=== PATIENT | female | born 2000 | race Caucasian/White ===

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

== ENCOUNTER → 2021-03-03 | Outpatient (CLI) | payer OTHER | END | disposition home or self-care (01) | LOC: LAB 13:02 → LAB SHORT 13:02 → LAB EV 13:02 | DX: J02.9 Acute pharyngitis, unspecified (principal) | CPT/HCPCS: 87081 ==

== ENCOUNTER → 2022-10-27 | Outpatient (CLI) | payer OTHER | END | disposition home or self-care (01) | LOC: LAB SHORT 16:28 → LAB 16:28 | DX: N39.0 Urinary tract infection, site not specified (principal) | CPT/HCPCS: 87077; 87086; 87186 ==

== ENCOUNTER → 2023-06-01 | Outpatient (CLI) | payer OTHER ==
[2023-06-03 04:09] LABS: CHLAMYDIA TRACHOMATIS, NAA Negative (Negative)
== END | disposition home or self-care (01) ==
LOC: LAB SHORT 10:15 → LAB 10:15
PROVIDERS: Nurse Practitioner Acute Care
DX: R10.9 Unspecified abdominal pain (principal); R30.0 Dysuria
CPT/HCPCS: 87086; 87491; 87591

== ENCOUNTER → 2023-06-02 | Outpatient (CLI) | payer OTHER ==
[2023-06-02 19:39] LABS: Campylobacter Sp Not Detected (NOT DETECT)
[2023-06-02 19:40] LABS: Adenovirus F 40/41 Not Detected (NOT DETECT); Astrovirus Not Detected (NOT DETECT); Cryptosporidium Not Detected (NOT DETECT); Cyclospora Cayetanensis Not Detected (NOT DETECT); E. Coli O157 Not Detected (NOT DETECT); Entamoeba Histolytica Not Detected (NOT DETECT); Enteroaggregative E. coli-EAEC Not Detected (NOT DETECT); Enteropathogenic E. coli-EPEC Not Detected (NOT DETECT); Enterotoxigenic E. coli-ETEC Not Detected (NOT DETECT); Giardia Lamblia Not Detected (NOT DETECT); Norovirus GI/GII Not Detected (NOT DETECT); Plesiomonas Shigelloides Not Detected (NOT DETECT); Rotavirus A Not Detected (NOT DETECT); Salmonella Sp Not Detected (NOT DETECT); Sapovirus Not Detected (NOT DETECT); Shiga Toxin-prod E. coli-STEC Not Detected (NOT DETECT); Shigella/Enteroin E. coli-EIEC Not Detected (NOT DETECT); Vibrio Cholerae Not Detected (NOT DETECT); Vibrio Sp Not Detected (NOT DETECT); Yersinia Enterocolitica Not Detected (NOT DETECT)
== END | disposition home or self-care (01) ==
LOC: LAB 17:47 → LAB SHORT 17:47
PROVIDERS: Nurse Practitioner Acute Care
DX: R10.9 Unspecified abdominal pain (principal); R19.7 Diarrhea, unspecified
CPT/HCPCS: 87507

== ENCOUNTER 2023-06-18 10:51 | Observation (INO) | payer OTHER ==
[~2023-06-18] VITALS: Ht 172.7 cm; Wt 54.3 kg
[2023-06-18 12:49] LABS: BASOPHILS ABSOLUTE AUTO 0.14 K/mm3 (0.00-0.23); BASOPHILS PERCENT AUTO 1 % (0-2); EOSINOPHILS ABSOLUTE AUTO 0.67 K/mm3 (0.00-0.68); EOSINOPHILS PERCENT AUTO 3 % (0-6); Hematocrit 37.6 % (33.0-51.0); Hemoglobin 11.7 g/dL (11.5-16.0); IMMATURE GRAN ABSOLUTE AUTO 0.15 K/mm3 (0.00-0.10); IMMATURE GRAN PERCENT AUTO 1 % (0-1); LYMPHOCYTES PERCENT AUTO 7 % (21-46); MONOCYTES ABSOLUTE AUTO 0.98 K/mm3 (0.16-1.47); MONOCYTES PERCENT AUTO 5 % (4-13); Mean Corpuscular HGB 25.3 pg (26.0-34.0); Mean Corpuscular HGB Conc 31.1 g/dL (31.5-36.5); Mean Corpuscular Volume 81 fL (80-100); Mean Platelet Volume 9.6 fL (9.1-12.4); NEUTROPHILS ABSOLUTE AUTO 18.26 K/mm3 (1.96-9.15); NEUTROPHILS PERCENT AUTO 85 % (41-73); Platelet Count 596 K/mm3 (150-400); RDW Coefficient Variation 15.5 % (11.7-14.2); RDW Standard Deviation 45.7 fL (35.1-46.3); Red Blood Cell Count 4.62 M/mm3 (3.80-5.20)
[2023-06-18 13:30] LABS: Albumin, Blood 2.8 g/dL (3.4-5.0); Albumin/Globulin Ratio 0.5 (0.8-1.8); Bilirubin, Total 0.4 mg/dL (0.1-1.0); Bun/Creatinine Ratio 7.5 (12.0-20.0); Calcium, Blood 8.7 mg/dL (8.5-10.1); Creatinine, Blood 0.53 mg/dL (0.40-1.00); Globulin, Blood 6.2 g/dL (2.2-4.0); Potassium, Blood 3.5 mmol/L (3.5-5.5)
[2023-06-18 16:58] LABS: Source, Urine Clean Catch
[2023-06-18 17:16] LABS: Appearance, Urine Clear (Clear); Bilirubin, Urine Neg (Neg); Blood, Urine Neg (Neg); Color, Urine Yellow (P-Yellow); Glucose Qualitative, Urine Neg (Neg); Ketones, Urine 4+ (Neg); Leukocyte Esterase, Urine Neg (Neg); Nitrite, Urine Neg (Neg); Protein, Urine 1+ (Neg); Urobilinogen, Urine NORM (Normal)
[2023-06-18 18:35] VITALS: BP 114/75
[2023-06-18] MEDS ORDERED: ONDA4ODT MM (18:35)
[2023-06-18 19:25] VITALS: BP 110/63
[2023-06-19] VITALS (33 sets, daily range): BP systolic 87–130; BP diastolic 46–82
--- NOTE | 2023-06-19 02:12 | NUR ---
shift summery. pt having n/v with the golytiely, pt given zofran earlyer and not time for more yet. Called gerontological nurse practitioner MD for another antiemetic . Pt also had temp of 102.0 order for tylenol given, checked of pt , pt unable to drink much of golitely due to n/v. Dose of zofran now avalable and given to pt. Pt also requested pain meds for abd pain. Reminded pt and mom to keep tying to get as much golytiely down as possible so procedures can be done. Both VU and pt trying to drink bowl prep. Pt is reporting having liq stools. call light in reach.
[2023-06-19 05:55] LABS: BASOPHILS PERCENT AUTO 1 % (0-2); EOSINOPHILS ABSOLUTE AUTO 0.35 K/mm3 (0.00-0.68); EOSINOPHILS PERCENT AUTO 2 % (0-6); Hematocrit 29.4 % (33.0-51.0); IMMATURE GRAN ABSOLUTE AUTO 0.13 K/mm3 (0.00-0.10); IMMATURE GRAN PERCENT AUTO 1 % (0-1); LYMPHOCYTES ABSOLUTE AUTO 1.11 K/mm3 (0.84-5.20); LYMPHOCYTES PERCENT AUTO 7 % (21-46); MONOCYTES ABSOLUTE AUTO 1.32 K/mm3 (0.16-1.47); MONOCYTES PERCENT AUTO 8 % (4-13); Mean Corpuscular HGB 25.1 pg (26.0-34.0); Mean Corpuscular HGB Conc 30.6 g/dL (31.5-36.5); Mean Corpuscular Volume 82 fL (80-100); Mean Platelet Volume 9.2 fL (9.1-12.4); NEUTROPHILS ABSOLUTE AUTO 13.41 K/mm3 (1.96-9.15); NEUTROPHILS PERCENT AUTO 82 % (41-73); Platelet Count 515 K/mm3 (150-400); RDW Coefficient Variation 15.5 % (11.7-14.2); RDW Standard Deviation 46.5 fL (35.1-46.3); Red Blood Cell Count 3.59 M/mm3 (3.80-5.20); White Blood Cell Count 16.42 K/mm3 (4.00-11.30)
[2023-06-19 07:23] LABS: Albumin, Blood 1.9 g/dL (3.4-5.0); Albumin/Globulin Ratio 0.4 (0.8-1.8); Bilirubin, Total 0.4 mg/dL (0.1-1.0); Bun/Creatinine Ratio 5.3 (12.0-20.0); Calcium, Blood 7.6 mg/dL (8.5-10.1); Creatinine, Blood 0.56 mg/dL (0.40-1.00); Globulin, Blood 4.5 g/dL (2.2-4.0)
[2023-06-19 07:28] LABS: Total Protein, Blood 6.4 g/dL (6.4-8.2)
--- NOTE | 2023-06-19 14:45 | NUR ---
History, Chart, Medications and Allergies reviewed before start of procedure. Pre-Op teaching done. Pt verbalizes understanding. Patient confirms NPO status and agrees with scheduled surgery. Patient states colon prep results clear. Lungs clear T/O to Auscultation.
--- NOTE | 2023-06-19 14:55 | NUR ---
06/19/23 1455 Yasemin Roberts HISTORY, CHART, MEDICATIONS AND ALLERGIES REVIEWED BEFORE START OF PROCEDURE. PATIENT CONFIRMS NPO STATUS AND AGREES WITH SCHEDULED PROCEDURE. 3-LEAD EKG REVIEWED WITH PHYSICIAN PRIOR TO START OF PROCEDURE. MONITOR INTACT WITH CONTINUOUS PULSE OXIMETRY,CAPNOGRAPHY, 3-LEAD EKG, INTERMITTENT BP. SUPPLEMENTAL O2 TO BE TITRATED THROUGHOUT PROCEDURE TO MAINTAIN O2 SATURATION ABOVE 90%. PATIENT DETERMINED TO BE ASA APPROPRIATE FOR PROPOFOL SEDATION PRIOR TO START OF PROCEDURE BY DR. DC.
[2023-06-19] MEDS ORDERED: ACET325 PO (18:00)
[2023-06-19] MEDS ORDERED: Prednisone10 MG PO (18:01)
[2023-06-19] MEDS ORDERED: NICO21TP TOP (18:01)
--- NOTE | 2023-06-19 19:25 | NUR ---
PT AOX4 COOPERATIVE OF CARE. PT STARTED OUT NPO FOR SCOPE AND WAS TREATED FOR NAUSEA AND PAIN PER EMAR. PT WAS ABLE TO COMPLETE SCOPE AND DR MAYEN ORDERED LABS AND MEDS TO BE COMPLETED PRIOR TO DISCHARGE. ALL LABS WERE DRAWN EXCEPT FOR TWO OF THEM. DR MAYEN WAS NOFTIFIED AND WILL LEAVE A HARD SCRPIPT AT DESK FOR PT TO EXHIBITS CURATOR TOMORROW AND COMPLETE LABS OUTPT. PT AMBULATING INDEPENDENTLY, BUT STILL HAD NAUSEA WHEN SHE TRIED TO EAT REGULAR FOOD. DR TAMAYO ADDED AN ORAL ZOFRAN TO EMAR. PT HAD PAPER WORK REVIEWED AND EDUCATIONAL MATERIAL SENT WITH HER. PT WAS ESCORTED OUT VIA WHEEL CHAIR.
[2023-06-19 19:30] LABS: Percent Saturation 4.4 % (15.0-50.0)
[2023-06-19 19:42] LABS: Rubella Antibody, IgG 81.9 IU/mL (15-)
[2023-06-19 19:58] LABS: Adenovirus F 40/41 Not Detected (NOT DETECT); Astrovirus Not Detected (NOT DETECT); Campylobacter Sp Not Detected (NOT DETECT); Cryptosporidium Not Detected (NOT DETECT); Cyclospora Cayetanensis Not Detected (NOT DETECT); E. Coli O157 Not Detected (NOT DETECT); Entamoeba Histolytica Not Detected (NOT DETECT); Enteroaggregative E. coli-EAEC Not Detected (NOT DETECT); Enteropathogenic E. coli-EPEC Not Detected (NOT DETECT); Enterotoxigenic E. coli-ETEC Not Detected (NOT DETECT); Giardia Lamblia Not Detected (NOT DETECT); Norovirus GI/GII Not Detected (NOT DETECT); Plesiomonas Shigelloides Not Detected (NOT DETECT); Rotavirus A Not Detected (NOT DETECT); Salmonella Sp Not Detected (NOT DETECT); Sapovirus Not Detected (NOT DETECT); Shiga Toxin-prod E. coli-STEC Not Detected (NOT DETECT); Shigella/Enteroin E. coli-EIEC Not Detected (NOT DETECT); Vibrio Cholerae Not Detected (NOT DETECT); Vibrio Sp Not Detected (NOT DETECT); Yersinia Enterocolitica Not Detected (NOT DETECT)
== END 2023-06-19 18:40 | disposition home or self-care (01) ==
LOC: ER 10:51 → MEDS 10:52 → ERHOLD 10:52 → MEDS 18:30
PROVIDERS: Emergency Medicine; Internal Medicine Gastroenterology; ADMIT Internal Medicine
PROC: 0DBE8ZX Excision of Large Intestine, Via Natural or Artificial Opening Endoscopic, Diagnostic (ICD-10-PCS; principal; 2023-06-19 13:00)
PROC: 0DB98ZX Excision of Duodenum, Via Natural or Artificial Opening Endoscopic, Diagnostic (ICD-10-PCS; principal; 2023-06-19 13:00)
PROC: 0DBB8ZX Excision of Ileum, Via Natural or Artificial Opening Endoscopic, Diagnostic (ICD-10-PCS; principal; 2023-06-19 13:00)
PROC: 0DB68ZX Excision of Stomach, Via Natural or Artificial Opening Endoscopic, Diagnostic (ICD-10-PCS; principal; 2023-06-19 13:00)
DX: K51.00 Ulcerative (chronic) pancolitis without complications (principal); K29.50 Unspecified chronic gastritis without bleeding; K64.4 Residual hemorrhoidal skin tags; R63.4 Abnormal weight loss; E86.0 Dehydration; Z83.719 Family history of colon polyps, unspecified; Z80.0 Family history of malignant neoplasm of digestive organs; Z72.0 Tobacco use
CPT/HCPCS: 36415; 74177; 80053; 81025; 82306; 82607; 82728; 82746; 83540; 83550; 83690; 83993; 84132; 84703; 85025; 86762; 87040; 87507; 88305; 88342; 96360; 96361; 96374; 96375; 96376; 99285-25; A9270; G0008; G0378; J2250; J2405; J2704; J2765; J3010; J3480; J7030; J7050; J7120; J7512; Q2036; Q9967

== ENCOUNTER 2023-09-19 09:53 | Inpatient (IN) | payer OTHER ==
[~2023-09-19] VITALS: Ht 172.7 cm; Wt 58.7 kg
[~2023-09-19 09:53] MED LIST: ACET325 PO; NICO21TP TOP; ONDA4ODT MM; Prednisone10 MG PO
[2023-09-19 11:04] LABS: BASOPHILS ABSOLUTE AUTO 0.06 K/mm3 (0.00-0.23); BASOPHILS PERCENT AUTO 0 % (0-2); EOSINOPHILS ABSOLUTE AUTO 0.04 K/mm3 (0.00-0.68); EOSINOPHILS PERCENT AUTO 0 % (0-6); Hematocrit 41.4 % (33.0-51.0); Hemoglobin 13.3 g/dL (11.5-16.0); IMMATURE GRAN ABSOLUTE AUTO 0.12 K/mm3 (0.00-0.10); IMMATURE GRAN PERCENT AUTO 1 % (0-1); LYMPHOCYTES ABSOLUTE AUTO 1.74 K/mm3 (0.84-5.20); LYMPHOCYTES PERCENT AUTO 11 % (21-46); MONOCYTES ABSOLUTE AUTO 1.19 K/mm3 (0.16-1.47); MONOCYTES PERCENT AUTO 8 % (4-13); Mean Corpuscular HGB Conc 32.1 g/dL (31.5-36.5); Mean Corpuscular Volume 93 fL (80-100); Mean Platelet Volume 8.6 fL (9.1-12.4); NEUTROPHILS ABSOLUTE AUTO 12.57 K/mm3 (1.96-9.15); NEUTROPHILS PERCENT AUTO 80 % (41-73); Platelet Count 382 K/mm3 (150-400); Red Blood Cell Count 4.44 M/mm3 (3.80-5.20); White Blood Cell Count 15.72 K/mm3 (4.00-11.30)
[2023-09-19 11:36] LABS: Albumin, Blood 3.6 g/dL (3.4-5.0); Albumin/Globulin Ratio 0.7 (0.8-1.8); Bilirubin, Total 0.4 mg/dL (0.1-1.0); Bun/Creatinine Ratio 8.1 (12.0-20.0); Calcium, Blood 9.3 mg/dL (8.5-10.1); Creatinine, Blood 0.62 mg/dL (0.40-1.00); Globulin, Blood 4.9 g/dL (2.2-4.0); Potassium, Blood 3.8 mmol/L (3.5-5.5); Total Protein, Blood 8.5 g/dL (6.4-8.2)
[2023-09-19] MEDS ORDERED: NS 1,000 ML IV SCH ×2 (12:10→13:20)
[2023-09-19] MEDS ORDERED: Ondansetron HCl 2 MG / ML 2ML Vial IV PRN (13:20)
[2023-09-19] MEDS ORDERED: Acetaminophen 325 MG TABLET PO PRN (13:20)
[2023-09-19] MEDS ORDERED: Ketorolac Tromethamine 15mg Vial IV PRN (13:30)
[2023-09-19] MEDS ORDERED: MethylPREDNISolone Sod Succ 40 MG VIAL IV SCH (14:00)
[2023-09-19] MEDS ORDERED: VITAMIN D5000 UNIT PO (14:04)
[2023-09-19 14:10] VITALS: BP 103/72
--- NOTE | 2023-09-19 14:50 | NUR ---
ADMIT PT ADMITTED FROM THE ER. ORIENTED TO ROOM. CALL LIGHT IN REACH. PROVIDED WITH WATER & JELLO. MOTHER AT BEDSIDE. K PAD SET UP FOR ABD PAIN RELIEF. NS STARTED ORDERED. DENIES OTHER NEEDS AT THIS TIME.
[2023-09-19 17:44] VITALS: BP 117/69
--- NOTE | 2023-09-19 18:13 | NUR ---
SHIFT SUMMARY PT ADMITTED TODAY. MEDICATED FOR PAIN ONCE THIS AFTERNOON WITH TORADOL. DENIES NAUSEA. PT STATES TWO SMALL MUCOUSY BMS WHEN SHE USED THE BATHROOM EARLIER. DR. DC CONSULTED. PT TOLERATING CLEAR LIQUIDS AT THIS TIME. NS RUNNING 150 ML/HR. PT DENIES OTHER NEEDS AT THIS TIME. VS REVIEWED. CALL LIGHT IN REACH.
[2023-09-19 20:11] VITALS: BP 95/73
[2023-09-20] VITALS (7 sets, daily range): BP systolic 99–117; BP diastolic 60–78
[2023-09-20 05:57] LABS: BASOPHILS ABSOLUTE AUTO 0.03 K/mm3 (0.00-0.23); BASOPHILS PERCENT AUTO 0 % (0-2); EOSINOPHILS PERCENT AUTO 0 % (0-6); Hematocrit 34.5 % (33.0-51.0); Hemoglobin 11.1 g/dL (11.5-16.0); IMMATURE GRAN ABSOLUTE AUTO 0.13 K/mm3 (0.00-0.10); IMMATURE GRAN PERCENT AUTO 1 % (0-1); LYMPHOCYTES ABSOLUTE AUTO 0.89 K/mm3 (0.84-5.20); LYMPHOCYTES PERCENT AUTO 5 % (21-46); MONOCYTES ABSOLUTE AUTO 0.45 K/mm3 (0.16-1.47); MONOCYTES PERCENT AUTO 3 % (4-13); Mean Corpuscular HGB 30.5 pg (26.0-34.0); Mean Corpuscular HGB Conc 32.2 g/dL (31.5-36.5); Mean Corpuscular Volume 95 fL (80-100); Mean Platelet Volume 9.1 fL (9.1-12.4); NEUTROPHILS ABSOLUTE AUTO 16.42 K/mm3 (1.96-9.15); NEUTROPHILS PERCENT AUTO 92 % (41-73); Platelet Count 338 K/mm3 (150-400); RDW Coefficient Variation 16.8 % (11.7-14.2); Red Blood Cell Count 3.64 M/mm3 (3.80-5.20); White Blood Cell Count 17.92 K/mm3 (4.00-11.30)
[2023-09-20 06:30] LABS: Alanine Aminotransfer (ALT/SGP 11 U/L (12-78); Albumin, Blood 2.9 g/dL (3.4-5.0); Albumin/Globulin Ratio 0.7 (0.8-1.8); Alk Phos 79 U/L (50-136); Anion Gap Unable to Calculate mmol/L (6-16); Aspartate Aminotrans (AST/SGOT 7 U/L (12-37); Bilirubin, Total 0.3 mg/dL (0.1-1.0); Blood Urea Nitrogen 2 mg/dL (8-24); Bun/Creatinine Ratio 4.3 (12.0-20.0); CO2, Blood 29 mmol/L (21-32); Calcium, Blood 8.5 mg/dL (8.5-10.1); Chloride, Blood 112 mmol/L (98-108); Creatinine, Blood 0.47 mg/dL (0.40-1.00); Globulin, Blood 3.9 g/dL (2.2-4.0); Glomerular Filtration Rate 136 (60-); Glucose, Blood 117 mg/dL (70-99); Sodium, Blood 140 mmol/L (136-145); Total Protein, Blood 6.8 g/dL (6.4-8.2)
--- NOTE | 2023-09-20 08:21 | NUR ---
SHIFT SUMMARY PT IS A&OX4, PLEASANT AND APPRECIATIVE OF CARES. VSS ON RA, BP A LITTLE SOFT, SYS IN THE 90'S. C/O PAIN IN ABD, MEDICATED PER EMAR, ALSO USING K PAD. PT IS INDEPENDENT IN ROOM. VOIDING IN BR, MULTIPLE LOOSE BM'S THIS SHIFT. TOLERATING A CLEAR LIQUID DIET, NO N/V. PT IS LOOKING FORWARD TO EATING FOOD. BED IN LOWEST POSITION, CALL LIGHT WITHIN REACH. CALLS APPROPRIATELY.
[2023-09-20] MEDS ORDERED: Nicotine 21 MG PATCH TOP SCH (09:00)
[2023-09-20] MEDS ORDERED: InFLIXimab-DYYB 100 MG Vial IV ONE (09:00)
[2023-09-20] MEDS ORDERED: Ergocalciferol 50000 Intn'l Units PO SCH (10:20)
[2023-09-20] MEDS ORDERED: diphenhydrAMINE HCl 12.5 MG/5 ML 5MLUDC (Alcohol/Dye Free) PO ONE (11:35)
[2023-09-20] MEDS ORDERED: Famotidine 20 MG Tab PO ONE (11:35)
[2023-09-20] MEDS ORDERED: diphenhydrAMINE HCL 25 MG/10 ML UDC PO ONE (11:40)
[2023-09-20] MEDS ORDERED: DiphenhydrAMINE HCL 25 MG Cap PO ONE (11:50)
[2023-09-20] MEDS ORDERED: Infliximab-DYYB 600 MG in NS 250 ML IV ONE (12:00)
--- NOTE | 2023-09-20 18:25 | NUR ---
SHIFT SUMMARY PT TOLERATED INFLIXIMAB WELL TODAY WITH NO REACTIONS. NO MAJOR CHANGES IN VS DURING INFUSION. PT PREMEDICATED WITH BENADRYL, PEPCID, AND TYLENOL TO HELP WITH TOLERANCE OF MED. TORADOL GIVEN TWICE THIS SHIFT TO HELP WITH ABD PAIN. PAIN PRIMARILY OCCURS WHEN HAVING/AFTER A BM. NO OTHER ACUTE CHANGES IN ASSESSMENT AT THIS TIME. VS REVIEWED. DENIES OTHER NEEDS AT THIS TIME. CALL LIGHT IN REACH.
[2023-09-20] MEDS ORDERED: MethylPREDNISolone Sod Succ 40 MG VIAL IV SCH (21:00)
[2023-09-21 04:12] VITALS: BP 98/68
[2023-09-21 05:39] LABS: BASOPHILS ABSOLUTE AUTO 0.02 K/mm3 (0.00-0.23); BASOPHILS PERCENT AUTO 0 % (0-2); EOSINOPHILS PERCENT AUTO 0 % (0-6); Hematocrit 35.6 % (33.0-51.0); Hemoglobin 11.2 g/dL (11.5-16.0); IMMATURE GRAN ABSOLUTE AUTO 0.08 K/mm3 (0.00-0.10); IMMATURE GRAN PERCENT AUTO 1 % (0-1); LYMPHOCYTES ABSOLUTE AUTO 0.85 K/mm3 (0.84-5.20); LYMPHOCYTES PERCENT AUTO 6 % (21-46); MONOCYTES ABSOLUTE AUTO 0.54 K/mm3 (0.16-1.47); MONOCYTES PERCENT AUTO 4 % (4-13); Mean Corpuscular HGB 29.8 pg (26.0-34.0); Mean Corpuscular HGB Conc 31.5 g/dL (31.5-36.5); Mean Corpuscular Volume 95 fL (80-100); Mean Platelet Volume 9.1 fL (9.1-12.4); NEUTROPHILS ABSOLUTE AUTO 11.85 K/mm3 (1.96-9.15); NEUTROPHILS PERCENT AUTO 89 % (41-73); Platelet Count 316 K/mm3 (150-400); RDW Coefficient Variation 17.1 % (11.7-14.2); RDW Standard Deviation 59.7 fL (35.1-46.3); Red Blood Cell Count 3.76 M/mm3 (3.80-5.20); White Blood Cell Count 13.34 K/mm3 (4.00-11.30)
[2023-09-21 06:12] LABS: Albumin/Globulin Ratio 0.8 (0.8-1.8); Bilirubin, Total 0.2 mg/dL (0.1-1.0); Bun/Creatinine Ratio 8.2 (12.0-20.0); Calcium, Blood 8.7 mg/dL (8.5-10.1); Creatinine, Blood 0.61 mg/dL (0.40-1.00); Potassium, Blood 4.1 mmol/L (3.5-5.5)
[2023-09-21 07:50] VITALS: BP 111/79
--- NOTE | 2023-09-21 08:53 | NUR ---
SHIFT SUMMARY PT IS A&OX4, VSS ON RA. NO EVENTS OR ACUTE CHANGES THIS SHIFT. C/O PAIN IN ABD, MEDICATED PER EMAR. INDEPENDENT IN ROOM. STILL HAVING LOOSE, MUCOUSY, AND BLOODY BM. NO C/O N/V. BED IN LOWEST POSITION, CALL LIGHT WITHIN REACH.
[2023-09-21 15:26] VITALS: BP 114/66
--- NOTE | 2023-09-21 18:34 | NUR ---
SUMMARY- PT INDEPENDANT IN THE ROOM. TOLERATING CLEAR LIQ'S. MIN SOLID FOOD INTAKE. TOOK IN PUDDING AND YOGURT, A FEW BITES OF RICE, GREEN BEENS AND A CHICKEN FOR DINNER. PT'S BOWEL THIS AM STATED PINK AND MUCOUSY. PROGRESSIVELY TURNED INTO BROWN LIQUID TO BROWN A BIT MORE FORMED WITH NO SIGHS OF BLOOD THIS PM. PAIN THIS AM SEVERE RIGHT BEFORE BOWEL READY TO MOVE. MEDICATED THIS AM WITH TORODOL. LIKELY HELPFUL TO RELEIVE DISCOMFORT. DR JADE IN TO SEE PT APPROX 1530 THIS AFERNOON. MOM IN ROOM, SUPPORTIVE IN CARE ALL OF THE DAY. WILL REPORT TO NOC VALERIE
[2023-09-21 20:06] VITALS: BP 108/71
[2023-09-22 04:01] VITALS: BP 102/69
--- NOTE | 2023-09-22 04:33 | NUR ---
SHIFT SUMMARY DENNIS WAS ALERT AND FULLY ORIENTED ON ASSESSMENT. PT REPORTS THAT STOOLS HAVE BEEN RANGING FROM LIQUID/MUCUS/BLOOD, TO SEMI FORMED BROWN STOOLS, BUT THAT IT DOES NOT SEEM TO BE A LINEAR PROGRESSION OF IMPROVEMENT. PT STATES THAT HER MOST RECENT BM WAS BLOODY AGAIN. I ASKED HER TO STOP FLUSHING HER BM'S AND LET US KNOW SO WE CAN VISUALIZE STOOLS. NO NEW OR WORSENING COMPLAINTS. PT SLEEPING IN BED AT A LOW POSITION WITH CALL LIGHT IN REACH.
[2023-09-22 05:01] LABS: Hematocrit 35.3 % (33.0-51.0); Hemoglobin 11.2 g/dL (11.5-16.0); Mean Corpuscular HGB Conc 31.7 g/dL (31.5-36.5); Mean Corpuscular Volume 95 fL (80-100); Mean Platelet Volume 9.1 fL (9.1-12.4); Platelet Count 325 K/mm3 (150-400); RDW Coefficient Variation 16.8 % (11.7-14.2); RDW Standard Deviation 59.2 fL (35.1-46.3); Red Blood Cell Count 3.73 M/mm3 (3.80-5.20); White Blood Cell Count 13.82 K/mm3 (4.00-11.30)
[2023-09-22 07:03] VITALS: BP 124/81
[2023-09-22] MEDS ORDERED: ERGO50000 PO (10:13)
--- NOTE | 2023-09-22 11:14 | NUR ---
PT DISCHARGED @1100 INDEPEDENTLY. MEDICATIONS FAXED TO [facility]. PT HAD FORMED BROWN BM THIS AM WITHOUT PRESENCE OF BLOOD. NO C/O PAIN THIS AM. IV STERIOD PROVIDED W/O COMPLAINTS. IV IN RAC REMOVED W/O COMPLICATIONS. ALL BELONGINGS SENT WITH PT. NO QUESTIONS AT TIME OF DISCHARGE. PT AWARE TO MAKE FOLLOW-UP APPOINTMENTS WITH PCP AND DR. DC.
== END 2023-09-22 10:53 | disposition home or self-care (01) | DRG 387 ==
LOC: ER 09:53 → MEDS 09:54 → ENPENDDIS 09-22 10:19 → MEDS 09-22 10:53
PROVIDERS: Family Medicine; Physician Assistant; ADMIT Internal Medicine
DX: K50.80 Crohn's disease of both small and large intestine without complications (principal); D50.9 Iron deficiency anemia, unspecified; E55.9 Vitamin D deficiency, unspecified; D72.829 Elevated white blood cell count, unspecified; F17.210 Nicotine dependence, cigarettes, uncomplicated; Z79.899 Other long term (current) drug therapy; Z90.49 Acquired absence of other specified parts of digestive tract; Z79.52 Long term (current) use of systemic steroids
CPT/HCPCS: 36415; 80053; 82306; 83690; 85025; 85027; 96361; 96374; 99284-25; A9270; J1885; J2920; J7030; J7050; Q5103

== ENCOUNTER 2024-02-07 09:40 | Emergency (ER) | payer OTHER ==
[~2024-02-07] VITALS: Ht 172.7 cm; Wt 59.0 kg
[~2024-02-07 09:40] MED LIST changes: +ERGO50000 PO; +INFLECTRA100 MG; +POTCHL20ER PO; +PRED20 PO; +VITAMIN D5000 UNIT PO
[2024-02-07 10:49] LABS: BASOPHILS ABSOLUTE AUTO 0.08 K/mm3 (0.00-0.23); BASOPHILS PERCENT AUTO 0 % (0-2); EOSINOPHILS ABSOLUTE AUTO 0.01 K/mm3 (0.00-0.68); EOSINOPHILS PERCENT AUTO 0 % (0-6); Hematocrit 41.9 % (33.0-51.0); Hemoglobin 13.9 g/dL (11.5-16.0); IMMATURE GRAN ABSOLUTE AUTO 0.13 K/mm3 (0.00-0.10); IMMATURE GRAN PERCENT AUTO 1 % (0-1); LYMPHOCYTES ABSOLUTE AUTO 1.31 K/mm3 (0.84-5.20); LYMPHOCYTES PERCENT AUTO 7 % (21-46); MONOCYTES PERCENT AUTO 5 % (4-13); Mean Corpuscular HGB 32.9 pg (26.0-34.0); Mean Corpuscular HGB Conc 33.2 g/dL (31.5-36.5); Mean Corpuscular Volume 99 fL (80-100); Mean Platelet Volume 9.2 fL (9.1-12.4); NEUTROPHILS ABSOLUTE AUTO 16.71 K/mm3 (1.96-9.15); NEUTROPHILS PERCENT AUTO 87 % (41-73); Platelet Count 426 K/mm3 (150-400); RDW Coefficient Variation 13.2 % (11.7-14.2); Red Blood Cell Count 4.23 M/mm3 (3.80-5.20); White Blood Cell Count 19.24 K/mm3 (4.00-11.30)
[2024-02-07 11:04] LABS: Albumin, Blood 3.3 g/dL (3.4-5.0); Albumin/Globulin Ratio 0.7 (0.8-1.8); Bilirubin, Total 0.6 mg/dL (0.1-1.0); Bun/Creatinine Ratio 10.7 (12.0-20.0); Calcium, Blood 9.2 mg/dL (8.5-10.1); Creatinine, Blood 0.66 mg/dL (0.40-1.00); Globulin, Blood 4.8 g/dL (2.2-4.0); Potassium, Blood 3.2 mmol/L (3.5-5.5); Total Protein, Blood 8.1 g/dL (6.4-8.2)
[2024-02-07] MEDS ORDERED: NS IV ONE (13:15)
[2024-02-07] MEDS ORDERED: INFLIXIMAB IV ONE (13:15)
[2024-02-07] MEDS ORDERED: PRED20 PO (13:36)
[2024-02-07 13:37] VITALS: BP 116/87
[2024-02-07] MEDS ORDERED: Infliximab-DYYB 300 MG in NS 250 ML IV ONE (14:20)
[2024-02-07] MEDS ORDERED: HYDR1TAB94 PO (14:23)
== END 2024-02-07 14:41 | disposition home or self-care (01) ==
LOC: ER 09:40
PROVIDERS: Physician Assistant
DX: K50.90 Crohn's disease, unspecified, without complications (principal); F17.290 Nicotine dependence, other tobacco product, uncomplicated; Z79.899 Other long term (current) drug therapy
CPT/HCPCS: 80053; 84703; 85025; 99284; J1745; J7050; Q5103

== ENCOUNTER → 2024-02-08 | Outpatient (CLI) | payer OTHER ==
[~2024-02-08] MED LIST changes: +HYDR1TAB94 PO
[2024-02-08 15:25] LABS: Adenovirus F 40/41 Not Detected (NOT DETECT); Astrovirus Not Detected (NOT DETECT); Campylobacter Sp Not Detected (NOT DETECT); Cryptosporidium Not Detected (NOT DETECT); Cyclospora Cayetanensis Not Detected (NOT DETECT); E. Coli O157 Not Detected (NOT DETECT); Entamoeba Histolytica Not Detected (NOT DETECT); Enteroaggregative E. coli-EAEC Not Detected (NOT DETECT); Enteropathogenic E. coli-EPEC Not Detected (NOT DETECT); Enterotoxigenic E. coli-ETEC Not Detected (NOT DETECT); Giardia Lamblia Not Detected (NOT DETECT); Norovirus GI/GII Not Detected (NOT DETECT); Plesiomonas Shigelloides Not Detected (NOT DETECT); Rotavirus A Not Detected (NOT DETECT); Salmonella Sp Not Detected (NOT DETECT); Sapovirus Not Detected (NOT DETECT); Shiga Toxin-prod E. coli-STEC Not Detected (NOT DETECT); Shigella/Enteroin E. coli-EIEC Not Detected (NOT DETECT); Vibrio Cholerae Not Detected (NOT DETECT); Vibrio Sp Not Detected (NOT DETECT); Yersinia Enterocolitica Not Detected (NOT DETECT)
[2024-02-12 13:47] LABS: CALPROTECTIN,FECAL >3000 ug/g (<=49)
== END | disposition home or self-care (01) ==
LOC: LAB 09:08 → LAB SHORT 09:08
PROVIDERS: Internal Medicine Gastroenterology
DX: K50.10 Crohn's disease of large intestine without complications (principal)
CPT/HCPCS: 83993; 87507

== ENCOUNTER → 2024-02-09 | Outpatient (CLI) | payer OTHER ==
[2024-02-09 12:19] LABS: Source, Urine Voided
[2024-02-09 13:03] LABS: Appearance, Urine Turbid (Clear); Blood, Urine 1+ (Neg); Color, Urine Yellow (P-Yellow); Glucose Qualitative, Urine Neg (Neg); Ketones, Urine 1+ (Neg); Leukocyte Esterase, Urine 1+ (Neg); Nitrite, Urine Neg (Neg); Protein, Urine 2+ (Neg); Urobilinogen, Urine 1+ (Normal)
[2024-02-09 13:10] LABS: Bilirubin, Urine 1+ (Neg)
[2024-02-09 13:12] LABS: Amorphous Heavy (0-Heavy); Bacteria Few /hpf; Calcium Oxalate Crystals Few /hpf; Mucus Light (0-Heavy); Squamous Epithelial Cells Few /hpf (Few)
== END ==
LOC: LAB 12:16 → LAB SHORT 12:16
PROVIDERS: Internal Medicine Gastroenterology
DX: K50.10 Crohn's disease of large intestine without complications (principal)
CPT/HCPCS: 81001

== ENCOUNTER 2024-05-12 21:25 | Emergency (ER) | payer OTHER ==
[~2024-05-12] VITALS: Ht 172.7 cm; Wt 61.2 kg
[2024-05-12 21:37] VITALS: BP 135/98
[2024-05-12] MEDS ORDERED: Acetaminophen 500 MG Tab PO ONE (22:20)
[2024-05-12] MEDS ORDERED: Ibuprofen 600 MG Tab PO ONE (22:20)
== END 2024-05-12 23:00 | disposition left against medical advice (07) ==
LOC: ER 21:25
DX: S01.85XA Open bite of other part of head, initial encounter (principal); W54.0XXA Bitten by dog, initial encounter; Z53.21 Procedure and treatment not carried out due to patient leaving prior to being seen by health care provider
CPT/HCPCS: A9270

== ENCOUNTER → 2024-11-27 | Outpatient (CLI) | payer OTHER ==
[2024-11-29 21:09] LABS: C. TRACHOMATIS BY TMA,THINPREP Negative (Negative); N. GONORRHOEAE BY TMA,THINPREP Negative (Negative); SPECIMEN SOURCE Cervical/Vag
== END | disposition home or self-care (01) ==
LOC: LAB 11:55 → LAB SHORT 11:55
PROVIDERS: Family Medicine
DX: Z01.419 Encounter for gynecological examination (general) (routine) without abnormal findings (principal); Z11.3 Encounter for screening for infections with a predominantly sexual mode of transmission
CPT/HCPCS: 87491; 87591

== ENCOUNTER → 2025-01-22 | Outpatient (CLI) | payer OTHER | LOC: LAB SHORT 14:27 → LAB 14:27 | DX: D06.9 Carcinoma in situ of cervix, unspecified (principal) | CPT/HCPCS: 88305 ==

== ENCOUNTER 2025-02-18 00:40 | Day surgery (SDC) | payer OTHER ==
[~2025-02-18] VITALS: Wt 80.3 kg
[2025-02-18 08:11] VITALS: BP 117/74
[2025-02-18] MEDS ORDERED: INFLIXIMAB DYYB IV SCH (08:25)
[2025-02-18] MEDS ORDERED: NS IV SCH (08:25)
== END 2025-02-18 10:47 | disposition home or self-care (01) ==
LOC: ATC 00:40
DX: K50.80 Crohn's disease of both small and large intestine without complications (principal)
CPT/HCPCS: 96413; 96415; J7050; Q5103

== ENCOUNTER → 2025-04-30 | Outpatient (CLI) | payer OTHER | LOC: LAB 12:01 → LAB SHORT 12:01 | DX: Z34.93 Encounter for supervision of normal pregnancy, unspecified, third trimester (principal) | CPT/HCPCS: 87081; 87150 ==

== ENCOUNTER 2025-05-27 07:55 | Inpatient (IN) | payer OTHER ==
[~2025-05-27] VITALS: Ht 172.7 cm; Wt 86.4 kg
[2025-05-27] VITALS (37 sets, daily range): BP systolic 90–152; BP diastolic 50–94
[2025-05-27] MEDS ORDERED: PRENATAL TABLE1 EAC2 PO (08:55)
[2025-05-27] MEDS ORDERED: Tranexamic Acid 100 ML IV SCH (09:05)
[2025-05-27] MEDS ORDERED: Ondansetron HCl 2 MG / ML 2ML Vial IV PRN (09:05)
[2025-05-27] MEDS ORDERED: Oxytocin 10 Unit / ML Vial IM PRN (09:05)
[2025-05-27] MEDS ORDERED: FentaNYL Citrate 50 MCG/ML 2 ML Injection IV PRN (09:05)
[2025-05-27] MEDS ORDERED: Penicillin G Potassium 5,000,000 UNITS in NS 250 ML IV ONE (09:05)
[2025-05-27] MEDS ORDERED: ePHEDrine Sulfate 50 MG/ML 1ML Injection XX PRN (09:05)
[2025-05-27] MEDS ORDERED: Carboprost Tromethamine 250 MCG/ML 1ML Amp IM PRN (09:05)
[2025-05-27] MEDS ORDERED: Methylergonovine Maleate 0.2MG / ML 1ML Amp IM PRN (09:05)
[2025-05-27] MEDS ORDERED: OXYTOCIN/RINGER'S LACTATE 500 ML IV PRN (09:05)
[2025-05-27] MEDS ORDERED: FentaNYL 2mcg/ml-Bup 0.1% Epd 250 ML EPI PRN (09:05)
[2025-05-27 09:15] LABS: BASOPHILS ABSOLUTE AUTO 0.04 K/mm3 (0.00-0.23); BASOPHILS PERCENT AUTO 0 % (0-2); EOSINOPHILS ABSOLUTE AUTO 0.01 K/mm3 (0.00-0.68); EOSINOPHILS PERCENT AUTO 0 % (0-6); Hematocrit 33.4 % (33.0-51.0); Hemoglobin 10.9 g/dL (11.5-16.0); IMMATURE GRAN ABSOLUTE AUTO 0.14 K/mm3 (0.00-0.10); IMMATURE GRAN PERCENT AUTO 1 % (0-1); LYMPHOCYTES ABSOLUTE AUTO 1.24 K/mm3 (0.84-5.20); LYMPHOCYTES PERCENT AUTO 8 % (21-46); MONOCYTES ABSOLUTE AUTO 0.67 K/mm3 (0.16-1.47); MONOCYTES PERCENT AUTO 4 % (4-13); Mean Corpuscular HGB Conc 32.6 g/dL (31.5-36.5); Mean Corpuscular Volume 87 fL (80-100); NEUTROPHILS ABSOLUTE AUTO 14.07 K/mm3 (1.96-9.15); NEUTROPHILS PERCENT AUTO 87 % (41-73); NRBC ABSOLUTE 0.00 K/mm3 (0.00-0.02); NRBC Auto 0.0 /100 WBC (0.0-0.2); Platelet Count 290 K/mm3 (150-400); RDW Coefficient Variation 14.1 % (11.7-14.2); RDW Standard Deviation 44.9 fL (35.1-46.3)
[2025-05-27] MEDS ORDERED: FentaNYL Citrate 50 MCG/ML 2 ML Injection ONE (11:36)
[2025-05-27] MEDS ORDERED: Penicillin G Potassium 2,500,000 UNITS in Dextrose 5% 100 ML IV SCH (13:30)
[2025-05-27] MEDS ORDERED: Ketorolac Tromethamine 30mg Vial IV PRN (22:40)
[2025-05-27] MEDS ORDERED: FLU VACC TS2025-26(6MOS UP)/PF 45 MCG/0.5 ML SYRINGE IM SCH (22:40)
[2025-05-27] MEDS ORDERED: Benzocaine Topical Anesthetic Spray 60GM TOP PRN (22:40)
[2025-05-27] MEDS ORDERED: Witch Hazel/Glycerin PADS TOP PRN (22:45)
[2025-05-28] VITALS (10 sets, daily range): BP systolic 110–127; BP diastolic 57–73
--- NOTE | 2025-05-28 01:54 | NUR ---
PATIENT AMBULATED WITHOUT DIFFICULTY TO THE SHOWER. VOIDED IN SHOWER. STATES PAIN IS 0/10.
[2025-05-28 05:24] LABS: Hematocrit 29.6 % (33.0-51.0); Hemoglobin 9.5 g/dL (11.5-16.0); Mean Corpuscular HGB Conc 32.1 g/dL (31.5-36.5); Mean Corpuscular Volume 89 fL (80-100); NRBC ABSOLUTE 0.00 K/mm3 (0.00-0.02); NRBC Auto 0.0 /100 WBC (0.0-0.2); Platelet Count 262 K/mm3 (150-400); RDW Coefficient Variation 14.1 % (11.7-14.2); RDW Standard Deviation 45.4 fL (35.1-46.3)
[2025-05-28] MEDS ORDERED: Prenatal Vit/FE Fumarate/FA 1 Tab PO SCH (09:00)
--- NOTE | 2025-05-28 14:07 | NUR ---
Assumed care at change of shift, patient resting in bed, c/o moderate cramping pain in abdomen, medicated as documented in EMAR. Reports no other discomfort at this time, reports going well and not requiring assistance. Patient desires to go home after newborns 24hr testing is complete. Provider is aware and a discharge order is in place at this time.
--- NOTE | 2025-05-29 00:53 | NUR ---
RN WENT OVER DISCHARGE INSTRUCTIONS, GAVE APPPIOINMENT CARD, AND MATCHED BABY BANDS. RN WATCHED MOB PLACED IN CARSEAT AND WALKED PT OUT TO VEHICLE AND WATCHED WAS PLACED IN CAR. PT HAD NO QUESTIONS OR CONCERNS BEFORE LEAVING.
== END 2025-05-28 23:58 | disposition home or self-care (01) | DRG 806 ==
LOC: BC 07:55 → OBS 07:55 → BC 08:26
PROVIDERS: Family Medicine; ADMIT Obstetrics & Gynecology
PROC: 10E0XZZ Delivery of Products of Conception, External Approach (ICD-10-PCS; principal; 2025-05-27)
PROC: 4A1HXCZ Monitoring of Products of Conception, Cardiac Rate, External Approach (ICD-10-PCS; 2025-05-27)
PROC: 10907ZC Drainage of Amniotic Fluid, Therapeutic from Products of Conception, Via Natural or Artificial Opening (ICD-10-PCS; 2025-05-27)
DX: O48.0 Post-term pregnancy (principal); K50.80 Crohn's disease of both small and large intestine without complications; Z37.0 Single live birth; Z3A.40 40 weeks gestation of pregnancy; O99.62 Diseases of the digestive system complicating childbirth; D06.9 Carcinoma in situ of cervix, unspecified; O99.892 Other specified diseases and conditions complicating childbirth; O99.824 Streptococcus B carrier state complicating childbirth; O77.0 Labor and delivery complicated by meconium in amniotic fluid; O70.0 First degree perineal laceration during delivery
CPT/HCPCS: 36415; 51701; 85025; 85027; 94762; A9270; J1885; J2405; J2540; J3010; J7050; J7120

== ENCOUNTER → 2025-07-04 | Outpatient (CLI) | payer OTHER ==
[~2025-07-04] MED LIST changes: +PRENATAL TABLE1 EAC2 PO
[2025-07-04 20:04] LABS: Bacterial Vaginosis PCR Negative (NEGATIVE); Candida Group, PCR NOT DETECTED (NOT DETECT); Candida glabrata-krusei, PCR NOT DETECTED (NOT DETECT)
== END ==
LOC: LAB 15:34 → LAB SHORT 15:34
PROVIDERS: Obstetrics & Gynecology
DX: Z11.3 Encounter for screening for infections with a predominantly sexual mode of transmission (principal)
CPT/HCPCS: 81515

== ENCOUNTER 2025-07-24 07:25 | Day surgery (SDC) | payer OTHER ==
[~2025-07-24 07:25] MED LIST changes: +RISANKIZUMAB-RZAA 600 MG in NS 250 ML IV SCH
[2025-07-24 14:36] VITALS: BP 101/68
[2025-07-24 16:26] VITALS: BP 109/74
== END 2025-07-24 16:28 | disposition home or self-care (01) ==
LOC: ATC 07:25
DX: K50.80 Crohn's disease of both small and large intestine without complications (principal); Z79.899 Other long term (current) drug therapy
CPT/HCPCS: 96413; J2327; J7050